=== PATIENT | male | born 1955 | race Two or more races ===

== ENCOUNTER 2016-08-25 07:06 | Day surgery (SDC) | payer MEDICARE, OTHER ==
[2016-08-24 13:04] VITALS: BMI 20.8
--- NOTE | 2016-08-24 22:13 | PREOPHP ---
DATE OF ADMISSION: 08/25/2016 HISTORY OF PRESENT ILLNESS: This 61-year-old patient is admitted for elective cataract surgery of t he right eye. The patient has had loss of vision in both eyes over the past few years with vision d ramatically decreased in the right eye. No prior history of eye disease or injury. PAST MEDICAL HISTORY: Patient does have a history of insulin-dependent diabetes mellitus, spinal s tenosis and anemia. ALLERGIES: THERE ARE NO KNOWN ALLERGIES. CURRENT MEDICATIONS: Patient's current medication includes: 1. Insulin. 2. Metformin. 3. Keppra. 4. Iron sulfate. PHYSICAL EXAMINATION: The visual acuity best corrected is hand motion vision in the right eye and 2 0/40 in the left eye. Slit lamp examination reveals a mature cataract in the right eye and a modera te posterior subcapsular cataract in the left eye. Applanation tonometry is 16 mmHg in both eyes. The view of the retina is obscured in both eyes due to the cataract formation. DIAGNOSIS: Cataract, right eye. PLAN: Cataract extraction with lens implant, right eye. The risks and alternatives to the surgery have been discussed with the patient. However, the ability to prognosticate is limited due to the a dvanced cataract formation in both eyes. The patient understands this and agrees to proceed with naomy davis. Dictated By: SACHI KWOK/ANTONI Conf#: [id number] DID#: [id number]
[~2016-08-25] VITALS: Ht 162.6 cm; Wt 46.0 kg
[2016-08-25 08:24] VITALS: BP 130/72; PULSE 88; RESP 18; Ht 162.6 cm; Wt 46.0 kg
[2016-08-25] MEDS ORDERED: CYCLOPENTOLATE/PHENYLEPH 2 ML OPH OPER SCH (08:30)
[2016-08-25] MEDS ORDERED: DICLOFENAC 0.1% 2.5 ML OPH OPER SCH (08:30)
[2016-08-25] MEDS ORDERED: TROPICAMIDE 1% 2 ML OPH OPER SCH (08:30)
[2016-08-25] MEDS ORDERED: CIPROFLOXACIN 0.3% 2.5 ML OPH OPER SCH (08:30)
[2016-08-25] MEDS ORDERED: LEVE750T70 PO (08:45)
[2016-08-25] MEDS ORDERED: FOLI-49 PO (08:45)
[2016-08-25] MEDS ORDERED: SYN1 PO (08:45)
[2016-08-25] MEDS ORDERED: LANT3I SC (08:45)
[2016-08-25] MEDS ORDERED: MTF1000T PO (08:45)
[2016-08-25] MEDS ORDERED: LIDOCAINE 100 MG SYRINGE ONE (09:54)
[2016-08-25] MEDS ORDERED: PROPOFOL 20 ML ONE (09:54)
[2016-08-25] MEDS ORDERED: hydrALAzine 20 MG INJ IV PRN (10:00)
[2016-08-25] MEDS ORDERED: FENTAnyl 50 MCG/ML VIAL IV PRN ×2 (10:00)
[2016-08-25] MEDS ORDERED: MIDAZOLAM 1 MG/ML 2 ML INJ IV PRN (10:00)
[2016-08-25] MEDS ORDERED: OXYCODONE/ACETAMINOPHEN (5/325) TAB PO PRN ×2 (10:00)
[2016-08-25] MEDS ORDERED: HYDROmorphONE (0.2 MG/ML) 10ML SYG IV PRN ×3 (10:00)
[2016-08-25] MEDS ORDERED: DIPHENHYDRAMINE 50 MG INJ IV PRN (10:00)
[2016-08-25] MEDS ORDERED: morphine (1 MG/ML) 10ML SYRINGE IV PRN ×3 (10:00)
[2016-08-25] MEDS ORDERED: ONDANSETRON 4 MG INJ IV PRN (10:00)
[2016-08-25] MEDS ORDERED: EPHEDrine SULFATE 50 MG/5 ML SYG IV PRN (10:00)
[2016-08-25] MEDS ORDERED: MEPERIDINE 25 MG INJ IV PRN (10:00)
[2016-08-25] MEDS ORDERED: ATROPINE 1 MG/10 ML SYRINGE IV PRN (10:00)
[2016-08-25] MEDS ORDERED: LABETALOL HCL 20MG INJ IV PRN (10:00)
[2016-08-25] MEDS ORDERED: LIDOCAINE 4% (MPF) 5 ML INJ ONE (10:11)
[2016-08-25] MEDS ORDERED: HYALURONATE/CHONDROITIN 1ML OPH INJ ONE (10:11)
[2016-08-25] MEDS ORDERED: DEXAMETHASONE 4 MG/ML 1 ML INJ ONE (10:11)
[2016-08-25] MEDS ORDERED: GENTAMICIN 80 MG INJ ONE (10:11)
[2016-08-25] MEDS ORDERED: CARBACHOL 0.01% 1.5 ML OPH INJ ONE (10:11)
[2016-08-25] MEDS ORDERED: CEFAZOLIN 1 GM INJ ONE (10:11)
[2016-08-25] MEDS ORDERED: EPINEPHrine 1 MG INJ ONE (10:12)
[2016-08-25] MEDS ORDERED: CEFAZOLIN 1 GM INJ INJ ONE (10:20)
[2016-08-25] MEDS ORDERED: DEXAMETHASONE 4 MG/ML 1 ML INJ INJ ONE (10:20)
[2016-08-25] MEDS ORDERED: HYALURONATE/CHONDROITIN 1ML OPH INJ IO ONE (10:20)
[2016-08-25] MEDS ORDERED: CARBACHOL 0.01% 1.5 ML OPH INJ IO ONE (10:20)
[2016-08-25] MEDS ORDERED: MIDAZOLAM 1 MG/ML 2 ML INJ ONE (10:43)
[2016-08-25] MEDS ORDERED: FENTAnyl 50 MCG/ML VIAL ONE ×2 (10:54→11:09)
[2016-08-25] MEDS ORDERED: NALOXONE (0.4 MG/ML) INJ ONE (11:25)
[2016-08-25] MEDS ORDERED: FLUMAZENIL 0.5 MG INJ ONE (11:27)
[2016-08-25 11:32] VITALS: BP 97/65; PULSE 90; RESP 14
[2016-08-25 11:37] VITALS: BP 97/63; PULSE 94; RESP 16
[2016-08-25 11:42] VITALS: BP 95/62; PULSE 90; RESP 14
[2016-08-25 11:47] VITALS: BP 87/58; PULSE 88; RESP 14
--- NOTE | 2016-08-25 12:06 | OPR ---
DATE OF OPERATION: 08/25/2016 PREOPERATIVE DIAGNOSIS: Mature cataract, right eye. POSTOPERATIVE DIAGNOSIS: Mature cataract, right eye. OPERATION PERFORMED: Cataract extraction with lens implant, right eye. SURGEON: Sachi Cartwright MD ANESTHESIA: Monitored anesthesia. ANESTHESIOLOGIST: Nahum Gray MD DESCRIPTION OF PROCEDURE: The patient brought to the operating room on an eye gurney, positioned appropriately, attached to electrocardiogram monitoring, given oxygen via nasal cannula. After intravenous sedation was administered, the patient received local anesthesia using lidocaine 4% given in lid block and retrobulbar injection. The patient was prepped and draped in the usual manner. A speculum was inserted between the lids of the right eye and 2 paracentesis incisions were made is in the supratemporal and supranasal quadrant adjacent to the corneoscleral limbus. A 3.0 mm keratome was used to enter the anterior chamber through the 12 o'clock corneal position adjacent to the limbus. Through this opening, an irrigating cystotome was introduced, a large anterior capsulotomy was performed and phacoemulsification of the lens nucleus was performed. While doing this, it was noted that the lens was extremely dense and required excessive ultrasonic time, as well as being difficult to bring from the posterior chamber into the anterior chamber. During this process, the pupil constricted. It was therefore decided to insert an I-Ring into the anterior chamber in order to force pupil dilation. This was done and positioned appropriately. Additional phacoemulsification was required. However , the lens fragment was not brought into the anterior chamber, until DisCoVisc was injected behind the remaining lens nuclear material and then phacoemulsification was completed. It was noted that the posterior capsule had been compromised and it was not able to support a lens in the posterior chamber. Therefore, Miostat was instilled in the anterior chamber to constrict the pupil. It was noted that there was some sphincter damage from the excessive phacoemulsification performed. However, a peripheral iridotomy was performed in the superotemporal quadrant. The wound was opened from 3 mm to 9 mm in order to accommodate the anterior chamber lens. Then a lens glide was placed anterior to the iris across the anterior chamber. A 19.5 diopter anterior chamber intraocular lens (Bausch and Lomb model L122UV) was inserted into the anterior chamber and the lens glide was removed. The trailing haptic was then inserted beneath the scleral shelf and then using a Sinskey hook, the lens was rotated. Following insertion of the lens implant, three 10-0 nylon sutures were placed across the wound and were tied. The ends were cut short and the knots were buried. Then, 0.5 mL of Ancef and 0.5 mL of dexamethasone were injected into the sub-Tenon space inferiorly. The speculum was then removed. Vigamox drops placed on the surface of the eye and the eye was patched. The patient then left the operating room in satisfactory condition. Dictated By: SACHI KWOK/ANTONI Conf#: [id number] DID#: [id number] MELITA
[2016-08-25 12:44] VITALS: BP 120/54; PULSE 84; RESP 16
== END 2016-08-25 13:47 | disposition home or self-care (01) ==
LOC: SDS 07:06
PROVIDERS: ATTEND Ophthalmology
DX: H25.041 Posterior subcapsular polar age-related cataract, right eye (principal); E11.9 Type 2 diabetes mellitus without complications; Z79.4 Long term (current) use of insulin; I25.10 Atherosclerotic heart disease of native coronary artery without angina pectoris
CPT/HCPCS: 66984; 82962; J0171; J0690; J1100; J1580; J2001; J2250; J2310; J3010; V2630